=== PATIENT | female | born 1985 | race Caucasian/White ===

== ENCOUNTER 2018-03-04 17:28 | Emergency (ER) | payer OTHER ==
[~2018-03-04] VITALS: Ht 162.6 cm; Wt 50.8 kg
[2018-03-04 17:42] VITALS: BP 129/83
--- NOTE | 2018-03-04 18:35 | NUR ---
PT STABLE TO WAIT IN LOBBY, INFORMED TO NOTIFY STAFF IMMEDIATELY IF CONDITON CHNAGES, PT VERBALIZED UNDERSTANDING.
[2018-03-04 18:43] LABS: BASOPHILS % (AUTO) 0.4 % (0.0-2.0); EOSINOPHILS # (AUTO) 0.1 K/uL (0-0.4); EOSINOPHILS % (AUTO) 1.6 % (0.0-4.0); HEMATOCRIT 41.2 % (36-48); HEMOGLOBIN 13.5 g/dL (12.0-16.0); LYMPHOCYTES # (AUTO) 1.7 K/uL (2.5-16.5); LYMPHOCYTES % (AUTO) 24.6 % (20.5-51.1); MEAN CORPUSCULAR HEMOGLOBIN 31 pg (27-31); MEAN CORPUSCULAR HGB CONC 33 g/dL (33-37); MEAN CORPUSCULAR VOLUME 95.2 fL (80-94); MONOCYTES # (AUTO) 0.4 K/uL (0.8-1.0); NEUTROPHILS # (AUTO) 4.7 K/uL (1.8-7.7); NEUTROPHILS % (AUTO) 67.4 % (42.2-75.2); PLATELET COUNT (AUTO) 238 K/uL (140-450); RED BLOOD CELL COUNT(AUTO) 4.33 MIL/uL (4.20-5.40); RED CELL DISTRIBUTION WIDTH 12.7 % (11.6-13.7)
[2018-03-04 19:04] LABS: ALBUMIN 4.7 g/dL (3.4-5.0); ANION GAP 12.8 (8-16); CARBON DIOXIDE 28.1 mmol/L (21-32); CREATININE 0.8 mg/dL (0.6-1.3); POTASSIUM 3.9 mmol/L (3.5-5.1); TOTAL BILIRUBIN 0.4 mg/dL (0.0-1.0)
--- NOTE | 2018-03-04 21:41 | NUR ---
PT AMBULATED TO ER BED 04
--- NOTE | 2018-03-04 21:45 | NUR ---
32/F CAME IN ED, C/O INTERMITTENT BLOATING AND ABNORMAL LABS (ELEVATED LFTs) FROM LAST WEEK. PT ALSO C/O INTERMITTENT TONGUE PAIN FROM PT'S CHRONIC LINGUAL NERVE DAMAGE. ABD SOFT, ROUND, NONTENDER, BS ACTIVE X4. PT AOX4, AMBULATORY, RR EVEN AND UNLABORED. HX ACNE, LINGUAL NERVE DAMAGE. PT REPORTS THAT SHE STOPPED TAKING DOXYCYCLINE AND OTHER SUPPLEMENTS 3 DAYS AGO. NKA.
[2018-03-04 22:25] VITALS: BP 120/68
--- NOTE | 2018-03-04 22:26 | NUR ---
Patient discharged with v/s stable. Written and verbal after care instructions given and explained. Patient verbalized understanding. Ambulatory with steady gait. All questions addressed prior to discharge. Advised to follow up with PMD.
== END 2018-03-04 22:26 | disposition home or self-care (01) ==
LOC: MED 17:28
DX: R10.9 Unspecified abdominal pain (principal); R14.0 Abdominal distension (gaseous); R79.9 Abnormal finding of blood chemistry, unspecified
CPT/HCPCS: 36415; 80053; 81025; 83690; 85025; 99284

== ENCOUNTER 2018-12-02 10:42 | Emergency (ER) | payer BC, OTHER ==
[~2018-12-02] VITALS: Ht 162.6 cm; Wt 53.6 kg
[2018-12-02 10:44] VITALS: BP 117/73
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
--- NOTE | 2018-12-02 11:17 | NUR ---
DR DOHERTY AT BEDSIDE FOR PT EVALUATION
[2018-12-02 12:29] VITALS: BP 115/74
== END 2018-12-02 12:29 | disposition home or self-care (01) ==
LOC: MED 10:42
DX: S13.4XXA Sprain of ligaments of cervical spine, initial encounter (principal); M25.511 Pain in right shoulder; M25.512 Pain in left shoulder; M54.5 Low back pain; V89.2XXA Person injured in unspecified motor-vehicle accident, traffic, initial encounter; Y93.89 Activity, other specified; Y92.89 Other specified places as the place of occurrence of the external cause; Y99.8 Other external cause status
CPT/HCPCS: 72040; 81002; 81025; 99283; Q0092

== ENCOUNTER 2019-10-21 12:25 | Emergency (ER) | payer BC, OTHER ==
[~2019-10-21] VITALS: Ht 162.6 cm; Wt 51.4 kg
[2019-10-21 12:29] VITALS: BP 108/64
[2019-10-21] MEDS ORDERED: IBUPROFEN 800 MG TAB PO ONE (12:50)
[2019-10-21] MEDS ORDERED: AMOXIL/CLAVULANATE 500/125 MG 1 TAB PO ONE (12:50)
[2019-10-21 13:48] VITALS: BP 130/79
== END 2019-10-21 13:47 | disposition home or self-care (01) ==
LOC: MED 12:25
DX: S02.2XXA Fracture of nasal bones, initial encounter for closed fracture (principal); M25.512 Pain in left shoulder; F41.9 Anxiety disorder, unspecified; Y04.1XXA Assault by human bite, initial encounter; Y93.89 Activity, other specified; Y92.89 Other specified places as the place of occurrence of the external cause; Y99.8 Other external cause status
CPT/HCPCS: 70160; 99283

== ENCOUNTER 2019-12-05 09:11 | Emergency (ER) | payer OTHER ==
[~2019-12-05] VITALS: Ht 162.6 cm; Wt 51.3 kg
[2019-12-05 09:19] VITALS: BP 131/85
--- NOTE | 2019-12-05 09:19 | NUR ---
Patient ambulated to bed 11. RN evaluating patient at bedside.
--- NOTE | 2019-12-05 09:23 | NUR ---
34/F WITH C/O N/V, ABDOMINAL AND RECTAL PAIN. STATES NAUSEA STARTING LAST NIGHT, WITH MULTIPLE EPISODES OF NONBLOODY VOMITING X AM TODAY. ABD PAIN AND RECTAL PAIN X 3 DAYS. ABD PAIN IN UMBILICAL REGION AND RADIATING OUTWARD TO BOTH SIDES. STATES RECTAL PAIN STARTED AFTER A HARD TO PASS STOOL 3 DAYS AGO. DENIES BLOOD IN STOOL. TRYING LAXATIVES WITHOUT EFFECT. SEPTOPLASTY ON Wednesday11/29/19 AND HAS FINISHED TAKING TYLENOL W/ CODEINE HX- DENIES
--- NOTE | 2019-12-05 09:25 | NUR ---
AMB TO BATHROOM TO PROVIDE URINE SAMPLE.
--- NOTE | 2019-12-05 09:41 | NUR ---
URINE DIPSTICK RESULTS REPORTED TO DR MACE
--- NOTE | 2019-12-05 09:41 | NUR ---
DR MACE EVALUATING PT AT BEDSIDE
[2019-12-05] MEDS ORDERED: KETOROLAC 15 MG/ML VIAL IVP ONE (09:50)
[2019-12-05] MEDS ORDERED: NACL 0.9% 1,000 ML IV ONE (09:50)
[2019-12-05] MEDS ORDERED: ONDANSETRON 4 MG/2 ML VIAL IVP ONE ×2 (09:50→12:05)
[2019-12-05] MEDS ORDERED: FAMOTIDINE 20 MG/2 ML VIAL IVP ONE (09:50)
--- NOTE | 2019-12-05 09:59 | NUR ---
RESTORER PAPER AND PRINTS AT BEDSIDE FOR BLOOD DRAW
--- NOTE | 2019-12-05 10:03 | NUR ---
EMAIL OPERATIONS MANAGER AT BEDSIDE TO TAKE PT TO XRAY VIA W/C
--- NOTE | 2019-12-05 10:04 | NUR ---
Patient taken to XRAY via wheelchair by tech.
--- NOTE | 2019-12-05 10:15 | NUR ---
PT BACK FROM XRAY VIA W/C
[2019-12-05 10:21] LABS: BASOPHILS % (AUTO) 0.4 % (0.0-2.0); EOSINOPHILS % (AUTO) 0.1 % (0.0-4.0); HEMATOCRIT 39.6 % (36-48); HEMOGLOBIN 13.5 g/dL (12.0-16.0); LYMPHOCYTES # (AUTO) 0.7 K/uL (2.5-16.5); LYMPHOCYTES % (AUTO) 6.5 % (20.5-51.1); MEAN CORPUSCULAR HEMOGLOBIN 33 pg (27-31); MEAN CORPUSCULAR HGB CONC 34 g/dL (33-37); MEAN CORPUSCULAR VOLUME 95.3 fL (80-94); MONOCYTES # (AUTO) 0.4 K/uL (0.8-1.0); MONOCYTES % (AUTO) 3.7 % (1.7-9.3); NEUTROPHILS # (AUTO) 9.6 K/uL (1.8-7.7); NEUTROPHILS % (AUTO) 89.3 % (42.2-75.2); PLATELET COUNT (AUTO) 256 K/uL (140-450); RED BLOOD CELL COUNT(AUTO) 4.16 MIL/uL (4.20-5.40); RED CELL DISTRIBUTION WIDTH 12.3 % (11.6-13.7); WHITE BLOOD COUNT (AUTO) 10.7 K/uL (4.8-10.8)
--- NOTE | 2019-12-05 10:47 | NUR ---
pt states pain slightly decreased but still has abd & rectal discomfort
--- NOTE | 2019-12-05 11:32 | NUR ---
CALL [facility]HER [facility] FOR PICKUP UPON D/C: [phone]
[2019-12-05 11:33] LABS: ALBUMIN 4.4 g/dL (3.4-5.0); ANION GAP 18.9 (8-16); CARBON DIOXIDE 24.3 mmol/L (21-32); CREATININE 0.8 mg/dL (0.6-1.3); POTASSIUM 4.2 mmol/L (3.5-5.1); TOTAL BILIRUBIN 0.6 mg/dL (0.0-1.0)
--- NOTE | 2019-12-05 11:51 | NUR ---
Dr. Samayoa is re-evaluating the patient at bedside.
--- NOTE | 2019-12-05 12:02 | NUR ---
EVELIN MACE FOR RECTAL EXAM. PT TOLERATED PROCEDURE WELL
[2019-12-05] MEDS ORDERED: POLYETHYLENE GLYCOL 17 GM/PKT PO ONE (12:05)
[2019-12-05] MEDS ORDERED: BISACODYL 10 MG SUPP RC ONE (12:05)
--- NOTE | 2019-12-05 12:12 | NUR ---
called pharmacy to bring ordered Miralax--not available in ER tyrone
--- NOTE | 2019-12-05 12:24 | NUR ---
CALLED MOTHER [facility] [phone] TO [employer]UGH[employer]. D/C PAPERWORK IS READY. MOTHER STATES SHE WILL COME NOW.
--- NOTE | 2019-12-05 12:50 | NUR ---
Patient discharged with v/s stable. Written and verbal after care instructions given and explained. Patient alert, oriented and verbalized understanding of instructions. Ambulatory with steady gait. All questions addressed prior to discharge. ID band removed. Patient advised to follow up with PMD. Rx of ZOFRAN AND MIRALAX POWDER given. Patient educated on indication of medication including possible reaction and side effects. Opportunity to ask questions provided and answered. MOTHER HERE TO AUDIT LEAD PATIENT.
[2019-12-05 12:51] VITALS: BP 129/80
== END 2019-12-05 12:50 | disposition home or self-care (01) ==
LOC: MED 09:11
DX: K59.00 Constipation, unspecified (principal); R11.2 Nausea with vomiting, unspecified; Z98.890 Other specified postprocedural states
CPT/HCPCS: 36415; 74022; 80053; 81002; 81025; 83690; 85025; 96361; 96374; 96375; 96376; 99284; J1885; J2405; J3490; J7030; Q0092